=== PATIENT | female | born 1975 | race Two or more races ===

== ENCOUNTER 2020-02-14 16:28 | Emergency (ER) | payer OTHER ==
[~2020-02-14] VITALS: Ht 152.4 cm; Wt 86.2 kg
[~2020-02-14 16:28] MED LIST: LIBRIUM5 MG; PEPCID40 MG PO; PROTONIX40 MG PO; SYNTHROID75 MCG PO; ZOFRAN4 MG PO
[2020-02-14] MEDS ORDERED: PRILOSEC OTC20 MG (17:11)
[2020-02-14] MEDS ORDERED: ZOFRAN8 MG (17:11)
== END 2020-02-14 19:27 | disposition home or self-care (01) ==
LOC: ER 16:28
DX: M62.830 Muscle spasm of back (principal); M62.838 Other muscle spasm

== ENCOUNTER 2020-05-11 09:55 | Emergency (ER) | payer OTHER ==
[~2020-05-11] VITALS: Ht 154.9 cm; Wt 89.8 kg
[~2020-05-11 09:55] MED LIST changes: +PRILOSEC OTC20 MG; +ZOFRAN8 MG
[2020-05-11] MEDS ORDERED: INTESTINEX680 M1 PO (17:17)
[2020-05-11] MEDS ORDERED: PEPCID AC20 MG PO (17:17)
[2020-05-11] MEDS ORDERED: METRONIDAZOLE500 MG PO (17:27)
== END 2020-05-11 18:13 | disposition home or self-care (01) ==
LOC: ER 09:55
DX: A09 Infectious gastroenteritis and colitis, unspecified (principal); E86.0 Dehydration

== ENCOUNTER 2020-07-16 13:13 | Emergency (ER) | payer OTHER ==
[~2020-07-16] VITALS: Ht 152.4 cm; Wt 90.7 kg
[~2020-07-16 13:13] MED LIST changes: +INTESTINEX680 M1 PO; +METRONIDAZOLE500 MG PO; +PEPCID AC20 MG PO
[2020-07-16] MEDS ORDERED: SAVELLA1 EACH PO (13:37)
[2020-07-16] MEDS ORDERED: CLARITIN10 M1 PO (13:38)
[2020-07-16] MEDS ORDERED: SINGULAIR10 MG PO (13:38)
[2020-07-16] MEDS ORDERED: NORFLEX100MG PO (18:38)
== END 2020-07-16 18:55 | disposition home or self-care (01) ==
LOC: ER 13:13
DX: R10.11 Right upper quadrant pain (principal)

== ENCOUNTER 2020-09-25 09:42 | Emergency (ER) | payer OTHER ==
[~2020-09-25] VITALS: Ht 152.4 cm; Wt 89.8 kg
[~2020-09-25 09:42] MED LIST changes: +CLARITIN10 M1 PO; +NORFLEX100MG PO; +SAVELLA1 EACH PO; +SINGULAIR10 MG PO
[2020-09-25] MEDS ORDERED: GEMFIBROZIL600 MG (10:07)
[2020-09-25] MEDS ORDERED: HYDROXYZINE HCL25 MG (10:08)
[2020-09-25] MEDS ORDERED: KETO10TA2 PO (13:01)
[2020-09-25] MEDS ORDERED: ZANAFLEX4 M1 PO (13:01)
== END 2020-09-25 13:12 | disposition home or self-care (01) ==
LOC: ER 09:42
DX: R30.0 Dysuria (principal); R11.0 Nausea; Z03.818 Encounter for observation for suspected exposure to other biological agents ruled out

== ENCOUNTER 2020-11-07 12:58 | Emergency (ER) | payer OTHER ==
[~2020-11-07] VITALS: Ht 149.9 cm; Wt 90.7 kg
[~2020-11-07 12:58] MED LIST changes: +GEMFIBROZIL600 MG; +HYDROXYZINE HCL25 MG; +KETO10TA2 PO; +ZANAFLEX4 M1 PO
[2020-11-07] MEDS ORDERED: DITROPAN XL5 MG (13:12)
[2020-11-07] MEDS ORDERED: ATARAX50 MG (13:12)
[2020-11-07] MEDS ORDERED: ACID REDUCER20 M1 (13:13)
== END 2020-11-07 15:54 | disposition home or self-care (01) ==
LOC: ER 12:58
DX: M54.2 Cervicalgia (principal)

== ENCOUNTER → 2021-04-03 | Emergency (ER) | payer OTHER ==
[~2021-04-03] VITALS: Ht 152.4 cm; Wt 77.1 kg
[~2021-04-03] MED LIST changes: +ACID REDUCER20 M1; +ATARAX50 MG; +CEPACOL SORE T1 EAC1; +DITROPAN XL5 MG; +RAYOS5 MG; +ZIPSOR25 MG
== END | disposition home or self-care (01) ==
LOC: ER 02:20
DX: K52.89 Other specified noninfective gastroenteritis and colitis (principal); R50.9 Fever, unspecified; Z03.818 Encounter for observation for suspected exposure to other biological agents ruled out

== ENCOUNTER → 2022-10-22 | Emergency (ER) | payer OTHER ==
[~2022-10-22] VITALS: Ht 152.4 cm; Wt 72.6 kg
[~2022-10-22] MED LIST changes: +BENADRYL25 MG PO; +CORTISONE60 GM TOP; +ZYRTEC10 M3 PO
== END | disposition home or self-care (01) ==
LOC: ER 10:11
DX: R21 Rash and other nonspecific skin eruption (principal); Z91.013 Allergy to seafood; Z88.8 Allergy status to other drugs, medicaments and biological substances; Z88.2 Allergy status to sulfonamides

== ENCOUNTER 2022-12-01 21:23 | Emergency (ER) | payer OTHER ==
[~2022-12-01] VITALS: Ht 152.4 cm; Wt 72.6 kg
== END 2022-12-02 01:21 | disposition home or self-care (01) ==
LOC: ER 21:23
DX: G44.89 Other headache syndrome (principal); R11.10 Vomiting, unspecified; R11.0 Nausea; M54.2 Cervicalgia; Z91.013 Allergy to seafood; Z88.8 Allergy status to other drugs, medicaments and biological substances